=== PATIENT | female | born 1945 | race Caucasian/White ===

== ENCOUNTER 2017-07-08 10:16 | Inpatient (IN) ==
[2017-07-08] MEDS ORDERED: ONDANSETRON 4 MG/2 ML VIAL IV STA ×2 (10:58→14:37)
[2017-07-08] MEDS ORDERED: SODIUM CHLORIDE 0.9% 500 ML IV STA (10:58)
[2017-07-08] MEDS ORDERED: ONDANSETRON 4 MG/2 ML VIAL ONE ×2 (11:05→14:36)
[2017-07-08 11:10] LABS: Basophils % 0.4 % (0.0-0.8); Eosinophils % 0.5 % (0.00-10.9); Hematocrit 37.6 VOL% (35.7-47.0); Hemoglobin 13.5 GM/DL (12.0-16.0); Immature Granulocytes % 0.4 %; Immature Granulocytes Absolute 0.03 #; Lymphocytes # 3.3 10*3/uL (1.4-4.0); Lymphocytes % 45.5 % (21.3-54.2); Mean Corpuscular HGB Conc 35.9 GM/DL (32-36); Mean Corpuscular Hemoglobin 34 PG (27-34); Mean Platelet Volume 9.4 FL (9.6-12.0); Monocytes # 0.5 10*3/uL (0.11-0.8); Monocytes % 6.6 % (1.7-12.7); Neutrophils # 3.4 10*3/uL (1.4-7.4); Neutrophils % 46.6 % (38.7-73.9); Platelet Count 250 T/CUMM (130-400); Red Cell Distribution Width 12.5 % (9.3-17.3); White Blood Count 7.3 T/CUMM (4-12)
[2017-07-08 11:21] LABS: Apearance,Urine CLEAR (Clear); Bacteria,Urine Occasional /HPF (Few); Bilirubin,Urine Negative (Negative); Blood, Urine Negative (Negative); Glucose,Urine (UA) Negative (Negative); Hyaline Casts,Urine 1 /LPF (0-3); Ketones,Urine Negative (Negative); Mucus,Urine Occasional /LPF (Occasional); Nitrite,Urine Negative (Negative); Protein,Urine Negative; RBC,Urine <1 /HPF (0-4); Squamous Epithelial Cell,Urine Occasional /HPF (0-10); Urine Color Straw (Yellow); Urine Specific Gravity 1.009 (1.001-1.035); Urine Urobilinogen < 2.0 EU/DL (0.2-1.0); WBC,Urine <1 /HPF (0-6)
[2017-07-08 11:36] LABS: Alanine Aminotransferase 18 U/L (13-56); Albumin 3.5 G/DL (3.4-5.0); Alkaline Phosphatase 84 U/L (45-117); Aspartate Amino Transferase 10 U/L (0-37); Bilirubin,Total < 0.39 MG/DL (0.2-1.0); Blood Urea Nitrogen 16 MG/DL (7-18); Calcium 8.4 MG/DL (8.5-10.1); Glucose 120 MG/DL (74-106); Osmolality,Calculated 282.3 MOS/KG (273-304); Potassium 3.5 MMOL/L (3.5-5.1); Sodium 141 MMOL/L (136-145)
[2017-07-08] MEDS ORDERED: hydrALAZINE 20 MG/1 ML VIAL IV STA (13:37)
[2017-07-08] MEDS ORDERED: hydrALAZINE 20 MG/1 ML VIAL ONE (13:37)
[2017-07-08] MEDS ORDERED: PROMETHAZINE 25 MG/1 ML VIAL IM STA (15:11)
[2017-07-08] MEDS ORDERED: PROMETHAZINE 25 MG/1 ML VIAL ONE (15:13)
[2017-07-08] MEDS ORDERED: ONDANSETRON 4 MG/2 ML VIAL IV PRN (15:58)
[2017-07-08] MEDS ORDERED: FUROSEMIDE 20 MG TABLET PO PRN (18:59)
[2017-07-08] MEDS: ACETAMINOPHEN 325 MG TABLET PO PRN (19:13)
[2017-07-08] MEDS: ENOXAPARIN 40 MG/0.4 ML SYRINGE SUBCUT SCH (19:16)
[2017-07-08] MEDS: SODIUM CHLORIDE 0.45% 1,000 ML IV SCH (19:23)
[2017-07-08] MEDS: DOCUSATE SODIUM 100 MG CAPSULE PO SCH (21:15)
[2017-07-09] MEDS: ACETAMINOPHEN 325 MG TABLET PO PRN ×2 (01:14→11:55)
[2017-07-09 06:27] LABS: Calcium 8.7 MG/DL (8.5-10.1); Osmolality,Calculated 276.5 MOS/KG (273-304); Potassium 3.8 MMOL/L (3.5-5.1); Risk Ratio 3.11; VLDL CHOLESTEROL 44.6 MG/DL
[2017-07-09] MEDS ORDERED: PANTOPRAZOLE 40 MG TABLET PO SCH (09:00)
[2017-07-09] MEDS: OMEGA 3 ACID ETHYL ESTERS 1 GM CAPSULE PO SCH (09:40)
[2017-07-09] MEDS: SELENIUM 200 MCG TABLET PO SCH (09:40)
[2017-07-09] MEDS: ASCORBIC ACID 500 MG TABLET PO SCH (09:40)
[2017-07-09] MEDS: CYANOCOBALAMIN 500 MCG TABLET PO SCH (09:40)
[2017-07-09] MEDS: PANTOPRAZOLE 40 MG TABLET PO SCH (09:41)
[2017-07-09] MEDS: CHOLECALCIFEROL 5,000 UNIT TABLET PO SCH (09:41)
[2017-07-09] MEDS: POTASSIUM CHLORIDE 10 MEQ TABLET PO SCH (09:41)
[2017-07-09] MEDS: ATORVASTATIN 10 MG TABLET PO SCH (09:41)
[2017-07-09] MEDS: GLIMEPIRIDE 2 MG TABLET PO SCH (09:42)
[2017-07-09] MEDS: DOCUSATE SODIUM 100 MG CAPSULE PO SCH ×2 (09:42→20:58)
[2017-07-09] MEDS: LISINOPRIL 10 MG TABLET PO SCH (09:44)
[2017-07-09] MEDS ORDERED: BUTALBITAL/ACETAMIN/CAFFEINE 50-325-40 MG TABLET PO PRN (14:22)
[2017-07-09] MEDS: ENOXAPARIN 40 MG/0.4 ML SYRINGE SUBCUT SCH (15:11)
[2017-07-09] MEDS ORDERED: AMITRIPTYLINE 25 MG TABLET PO SCH (21:00)
[2017-07-10] MEDS: SODIUM CHLORIDE 0.45% 1,000 ML IV SCH (09:03)
[2017-07-10] MEDS: OMEGA 3 ACID ETHYL ESTERS 1 GM CAPSULE PO SCH (09:06)
[2017-07-10] MEDS: GLIMEPIRIDE 2 MG TABLET PO SCH (09:06)
[2017-07-10] MEDS: DOCUSATE SODIUM 100 MG CAPSULE PO SCH (09:07)
[2017-07-10] MEDS: ATORVASTATIN 10 MG TABLET PO SCH (09:07)
[2017-07-10] MEDS: CYANOCOBALAMIN 500 MCG TABLET PO SCH (09:07)
[2017-07-10] MEDS: CHOLECALCIFEROL 5,000 UNIT TABLET PO SCH (09:07)
[2017-07-10] MEDS: ASCORBIC ACID 500 MG TABLET PO SCH (09:07)
[2017-07-10] MEDS: SELENIUM 200 MCG TABLET PO SCH (09:07)
[2017-07-10] MEDS: LISINOPRIL 10 MG TABLET PO SCH (09:07)
[2017-07-10] MEDS: POTASSIUM CHLORIDE 10 MEQ TABLET PO SCH (09:07)
[2017-07-10] MEDS: PANTOPRAZOLE 40 MG TABLET PO SCH (09:07)
[2017-07-10 12:20] VITALS: BP 105/52
== END 2017-07-10 14:30 | disposition home or self-care (01) | DRG 305 ==
LOC: N.ED 10:16 → N.EDINP 15:58 → N.2E 18:39
PROVIDERS: ADMIT Family Medicine; ATTEND Family Medicine